=== PATIENT | female | born 1950 | race Caucasian/White ===

== ENCOUNTER 2017-07-04 09:47 | Emergency (ER) | payer MEDICARE, BC ==
[2017-07-04 09:56] VITALS: BP 157/71
--- NOTE | 2017-07-04 10:52 | UC ---
Neck Pain HPI - HPI Summary HPI Summary: Patient presents to the with CC of right arm intermittent numbness/tingling extending from the shoulder joint to the elbow joint. She states she fell in the shower 3 weeks ago and about 1 week ago began to feel numbness/tingling throughout the upper arm with sharp pain to the right shoulder most notably over the acromion process. Denies injury to the area. Pain over the acromion is intermittent and worse at night. Denies any pain in the contralateral arm which was fractured last year. Denies weakness. - History of Current Complaint Chief Complaint: UCUpperExtremity Stated Complaint: FELL ARM INJURY Time Seen by Provider: 07/04/17 10:09 Hx Obtained From: Patient Hx Last Menstrual Period: n/a ?: No Onset/Duration Of Injury/Symptoms: Weeks Mechanism Of Injury: Blunt Trauma Timing: Intermittent Episodes Onset/Duration: Gradual Onset, Lasting Minutes Severity: Mild Pain Intensity: 3 Pain Scale Used: 0-10 Numeric Location: Diffuse - left arm Alleviating Factors: Nothing Associated Signs & Symptoms: Positive: Negative - Risk Factors Meningitis Risk Factors: Negative - Allergies/Home Medications Allergies/Adverse Reactions: Allergies Allergy/AdvReac Type Severity Reaction Status Date / Time No Known Allergies Allergy Verified 09/10/16 12:27 Home Medications: Home Medications Cariprazine HCl [Vraylar] 1.5 mg PO 07/04/17 [History] PMH/Surg Hx/FS Hx/Imm Hx Previously Healthy: Yes Other History Of: Anticoagulant Therapy - Aspirin 81 mg a day. Negative For: HIV, Hepatitis B, Hepatitis C - Surgical History Surgical History: Yes Surgery Procedure, Year, and Place: BREAST BX 1972. CSP FUSION - Family History Known Family History: Positive: Cardiac Disease, Other - [place] Negative: Hypertension - Social History Occupation: Retired Lives: With Family Alcohol Use: Rare Substance Use Type: None Smoking Status (MU): Never Smoked Tobacco Have You Smoked in the Last Year: No Review Of Systems Constitutional: Positive: Negative. Negative: Fever, Fatigue Skin: Positive: Negative Respiratory: Positive: Negative Cardiovascular: Positive: Negative Genitourinary: Positive: Negative Musculoskeletal: Positive: Arthralgia - right shoulder tenderness Neurological: Positive: Paresthesia, Numbness Psychological: Positive: Negative All Other Systems Reviewed And Are Negative: Yes Physical Exam Triage Information Reviewed: Yes Appearance: Well-Appearing, Well-Nourished Vital Signs: Initial Vital Signs Temp 98.9 F 07/04/17 09:52 Pulse 106 07/04/17 09:52 Resp 18 07/04/17 09:52 BP 157/71 07/04/17 09:52 Pulse Ox 97 07/04/17 09:52 Vital Signs Reviewed: Yes Eye Exam: Normal Eyes: Positive: Conjunctiva Clear Neck: Positive: Supple, Nontender, No Lymphadenopathy Respiratory Exam: Normal Respiratory: Positive: Chest non-tender Cardiovascular Exam: Normal Musculoskeletal: Positive: Strength Intact, ROM Intact, Other: - pain on deep palpation of the acromion process of the right shoulder Neurological Exam: Normal Neurological: Positive: Alert Psychological: Positive: Normal Response To Family Skin Exam: Normal Neck Pain Course/Dx - Course Course Of Treatment: Patient presents with numbness and tingling to the right arm most prominent in the humeral area with pain on palpation of the acromion process of the left shoulder. CT cervical shows. IMPRESSION: NO ACUTE BONY FINDINGS. ANTERIOR CERVICAL FUSION C5-C7 WITHOUT EVIDENCE OF. HARDWARE FAILURE. DEGENERATIVE DISC DISEASE C4-C5 MILD CANAL STENOSIS. BILATERAL FORAMINAL. NARROWING AT C3-C4 AND C4-C5 MOST SEVERE AT C3-C4. Patient made aware. There is no weakness noted and pulses +2 bilaterally. Cap refill good. Patient is given tramadol for relief of pain and is encouraged to only take if ibuprofen is not improving symptoms. Dr. Elliott referred and she will return to Dr. Braden if symptoms in the shoulder persist or worsen. She is OK with this plan and understands. Voices no concerns at this time. - Differential Dx/Diagnosis Differential Dx/HQI/PQRI: Arthritis, Sprain, Strain Provider Diagnoses: Cervical Radiculopathy Discharge - Discharge Plan Condition: Stable Disposition: HOME Prescriptions: traMADol TAB* [Ultram*] 25 mg PO Q8H PRN #15 tab MDD 3 PRN Reason: Pain Patient Education Materials: Cervical Radiculopathy (ED) Referrals: Jailene Henderson MD [Primary Care Provider] - Austin Elliott MD [Medical Doctor] - Additional Instructions: Please follow up with Dr. Elliott's office Ibuprofen 600mg three times daily Please only take for 5-6 days at a time, make sure you have a 5-6 break before restarting. Tramadol up to three times daily, however, I recommend to only use at bedtime Return to ED if symptoms worsen or fail to improve, notice worsening swelling, warmth or redness around the joint, develop fever, or pain is uncontrolled with OTC medications. Moist heat to the area for comfort. Warm showers or baths may improve symptoms. It is important to remain mobile as tolerated to prevent stiffening of the joints and delay healing. Follow up with your PCP. If symptoms remain for > 6 weeks, please seek special medical attention from an orthopedic physician or Dr. Elliott.
--- NOTE | 2017-07-04 11:27 | RAD ---
INDICATION: Fall with left arm injury. Tingling left arm. Prior cervical fusion 1992 COMPARISON: None TECHNIQUE: Noncontrast axial source images was performed from the skull base to the thoracic inlet. Coronal and and sagittal reformatted images were generated. FINDINGS: Vertebrae: There is no fracture or acute focal bony lesion. There is anterior cervical fusion from C5 through C7. There is no evidence of hardware failure. There is multilevel vertebral spur formation anteriorly with uncinate process spurring at C3-C4. Alignment: The craniocervical junction appears normal. There is a 3 mm anterolisthesis of C3 on C4 which is likely on a degenerative basis. There is cervical spine straightening. Central Canal/foramina: There is posterior spondylitic ridge formation at C4 producing a mild decrease in AP diameter of the canal. The canal otherwise appears widely patent. There is uncinate process spurring leading to advanced bilateral foraminal narrowing at C3-C4. . There is [id number] lateral foraminal narrowing at C4-C5. The foramina are otherwise widely patent. Intervertebral disc spaces: Moderate disc space narrowing C4-C5. Mild narrowing C7-T1. The remaining levels are either fused or show no significant narrowing. Brain: The visualized brain appears unremarkable. Soft tissues: The visualized soft tissue elements of the neck are unremarkable. The prevertebral soft tissues appear normal. The lung apices are clear. IMPRESSION: NO ACUTE BONY FINDINGS. ANTERIOR CERVICAL FUSION C5-C7 WITHOUT EVIDENCE OF HARDWARE FAILURE. DEGENERATIVE DISC DISEASE C4-C5 MILD CANAL STENOSIS. BILATERAL FORAMINAL NARROWING AT C3-C4 AND C4-C5 MOST SEVERE AT C3-C4
--- NOTE | 2017-07-04 11:29 | RAD ---
Indication: Numbness and tingling post fall. LEFT arm injury. Comparison: June 29, 2004 chest radiograph. Technique: Noncontrast CT thoracic spine. Multiplanar reformation. Report: RIGHT lower lobe calcified granuloma as well as RIGHT hilar and mediastinal calcified lymph nodes and small calcified granulomas at the spleen. Partially visualized cervical fusion hardware extending as far caudally as C7. Normal thoracic spine kyphosis. Slight RIGHT convex curve. Negative for thoracic spine fracture. Negative for paravertebral hematoma. Diffuse thoracic degenerative spondylosis with predominant anterior and RIGHT lateral osteophyte with bridging osteophytes at multiple levels. At T4-T5 there is a calcified chronic appearing small posterior disc extrusion with mild cephalad extension with results in only mild impression on the ventral margin of the thecal sac. IMPRESSION: 1. No thoracic spine fracture or traumatic malalignment. 2. Diffuse thoracic degenerative spondylosis with predominant anterior and RIGHT lateral osteophyte with bridging osteophytes at multiple levels. At T4-T5 there is a calcified chronic appearing small posterior disc extrusion with mild cephalad extension with results in only mild impression on the ventral margin of the thecal sac.
== END 2017-07-04 12:00 | disposition home or self-care (01) ==
LOC: UCEAST 09:47
DX: M54.12 Radiculopathy, cervical region (principal)
CPT/HCPCS: 72125; 72128; 99212; G0463